=== PATIENT | female | born 1970 ===

== ENCOUNTER 2016-10-13 10:21 | Day surgery (SDC) | payer MEDICARE, OTHER ==
[2016-07-22 12:11] VITALS: BMI 32.3
[2016-10-13 11:30] VITALS: O2SAT 100
[2016-10-13] MEDS ORDERED: Midazolam 2 MG/2 ML VIAL ONE (11:47)
[2016-10-13] MEDS ORDERED: Absorbable Gelatin Sponge Size 12-7 ONE (12:00)
--- NOTE | 2016-10-13 12:23 | CP.SDSHP ---
Same Day Surgery H & P - History Proposed Procedure: US guided left kidney biopsy. Pre-Op Diagnosis: System LUpus, proteinuria - Allergies Allergies: Allergies No Known Allergies Allergy (Verified 07/02/16 14:08) - Physical Exam Vital Signs: Vital Signs 10/13/16 10:29 Temperature 97.6 F Pulse Rate 58 L Respiratory 20 Rate Blood Pressure 163/96 H O2 Sat by Pulse 100 Oximetry Mental Status: Alert & Oriented x3 Neuro: WNL Heart: WNL Lungs: WNL - Impression Impression: Pt with SLE and proteinuria referred for image guided renal biopsy. Plan US guided renal biopsy. Informed consent obtained. Pt. Evaluated Today:Candidate for Anesthesia & Procedure: Yes (ASA 3 Malampati 3) Short Stay Discharge - Short Stay Discharge Admitting Diagnosis/Reason for Visit: PROTEINURIA, UNSPECIFIED//CHRONIC KIDNEY DISEASE,S Disposition: HOME/ ROUTINE
--- NOTE | 2016-10-13 12:24 | PCM.SURG1 ---
Surgeon's Initial Post Op Note - Surgeon's Notes Surgeon: Du Colvin MD Percussion Tuner: NONE Type of Anesthesia: IV Sedation Pre-Operative Diagnosis: SLE, Proteinuria Operative Findings: Echogenic left kidney consistent with medical renal disease. Post-Operative Diagnosis: SLE, Proteinuria Operation Performed: US guided core biopsy of left kidney. Biopsy tract embolized with gelfoam. Specimen/Specimens Removed: 18 g core x 4 Estimated Blood Loss: EBL {In ML}: 0 Blood Products Given: N/A Drains Used: No Drains Post-Op Condition: Fair Date of Surgery/Procedure: 10/13/16 Time of Surgery/Procedure: 12:20
--- NOTE | 2016-10-13 15:19 | US ---
PROCEDURE: PROCEDURE: Date of procedure: 10/13/2016 Procedure: Ultrasound-guided left renal biopsy, CPT 50914 Ultrasound guidance for biopsy, [address] Medications: 6 cubic centimeters 2 percent lidocaine, patient received IV sedation by the anesthesiologist. HISTORY: Proteinuria TECHNIQUE: Following informed consent and procedure time-out, the patient was placed prone on the interventional table and a limited ultrasound showed slightly echogenic left kidney consistent with medical renal disease. There is no hydronephrosis or mass. The patient left back was prepped and draped in the usual sterile fashion. After patient sedated by the anesthesiologist and the skin anesthetized with lidocaine, an 18 gauge core needle was advanced percutaneously towards the lower pole cortex. Upon confirmation of needle position, three-18 gauge core specimens were obtained and sent for routine pathology. The biopsy tract was then embolized with Gelfoam. A post biopsy ultrasound showed no hematoma. There were no immediate complications. IMPRESSION: Ultrasound-guided left renal biopsy. HISTORY: TECHNIQUE: IMPRESSION:
[2016-10-13 15:46] VITALS: BP 140/90; PULSE 70; RESP 18; TEMP 98
== END 2016-10-13 15:48 | disposition home or self-care (01) ==
LOC: C.SPRAD 10:21
PROVIDERS: ATTEND Radiology Vascular & Interventional Radiology
DX: R80.9 Proteinuria, unspecified (principal); N18.4 Chronic kidney disease, stage 4 (severe); M32.9 Systemic lupus erythematosus, unspecified
CPT/HCPCS: 50200; 76942; 88305; J2250; J3010

== ENCOUNTER 2016-11-12 07:32 | Day surgery (SDC) | payer MEDICARE, OTHER ==
[2016-07-22 12:11] VITALS: BMI 32.3
[2016-11-12] MEDS ORDERED: ceFAZolin IV 1 gm in Dextrose 0 GM/0 ML BAG IVPB ONE (08:28)
[2016-11-12] MEDS ORDERED: Propofol 10 mg/ml Inj (20 ML) ONE (08:41)
[2016-11-12] MEDS ORDERED: Midazolam 2 MG/2 ML VIAL ONE (08:42)
[2016-11-12] MEDS ORDERED: Sodium Chloride 0.9% 500 ML IV ONE (08:45)
[2016-11-12] MEDS ORDERED: ceFAZolin IV 2 gm in Dextrose 1 GM/50 ML BAG IVPB ONE (08:58)
[2016-11-12] MEDS ORDERED: Neostigmine Methylsulfate 3mg/3ml Syringe IV ONE (09:39)
[2016-11-12] MEDS ORDERED: HYDROmorphone 0.5 mg/0.5 ml ISec IVP PRN (09:43)
[2016-11-12] MEDS ORDERED: HEPARIN-NS 5,000 UNITS/500 ML 0 UNIT/0 ML BAG IV ONE (10:24)
[2016-11-12] MEDS ORDERED: Sodium Chloride 0.9% 20 ML IV ONE (10:25)
--- NOTE | 2016-11-12 10:43 | PCM.SURG1 ---
Surgeon's Initial Post Op Note - Surgeon's Notes Surgeon: Dr. Brannon [employer] Subcontractor: Dr. Edwards PGY-2, Dr. Woodruff PGY-2 Type of Anesthesia: General Endo Pre-Operative Diagnosis: Renal failure requiring dialysis Operative Findings: Catheter in the right pelvis Post-Operative Diagnosis: Renal failure requiring dialysis Operation Performed: Laparoscopic insertion of peritoneal dialysis catheter ( Tenkoff) Specimen/Specimens Removed: none Estimated Blood Loss: EBL {In ML}: 10 Blood Products Given: N/A Drains Used: No Drains (Peritoneal dialysis catheter) Post-Op Condition: Good Date of Surgery/Procedure: 11/12/16 Time of Surgery/Procedure: 09:00
[2016-11-12 12:52] VITALS: BP 118/76; PULSE 61; RESP 15; TEMP 97; O2SAT 97
--- NOTE | 2016-11-13 07:13 | OP ---
PROCEDURE DATE: 11/12/2016 PREOPERATIVE DIAGNOSIS: Renal failure, planned peritoneal dialysis. PROCEDURE CARRIED OUT: Placement of Tenckhoff catheter, curlicue type, with 2 cuffs laparoscopically . SURGEON: Moy Brannon Jr., MD CAPTAIN ROOM SERVICE: Dr. Woodruff and Dr. Edwards. ANESTHESIA: General anesthesia, Marta Villasenor. INDICATIONS: The patient is a middle-aged woman with history of gastric bypass and gallbladder surge ry in the past, who requires peritoneal dialysis. OPERATIVE FINDINGS: 1. There was no evidence of a hernia. 2. There were no significant intraabdominal adhesions. DESCRIPTION OF PROCEDURE: The patient was given general anesthesia and intravenous antibiotics. The area had been mapped out on the abdominal wall. We made an incision in left upper quadrant and inse rted a Veress needle and then inserted a trocar in this location. Under direct vision then we ____ p laced a catheter in the right rectus sheath and tunneled it down into the pelvis. We then filled thi s with fluid to make sure that there was good inflow and outflow, and it was excellent. We then brou ght the tunnel through a subcutaneous portion and brought it out on the right upper abdomen. Blood l oss of procedure was approximately 10-25 mL. There were no significant intraabdominal complications or problems. I mention again that there was excellent flow in and out with the catheter. Catheter w as flushed with heparinized saline at the end. Dressing was secured to the skin. No sutures were pl aced. OPERATION CARRIED OUT: Laparoscopic placement of Tenckhoff peritoneal dialysis catheter. Moy Brannon Jr., MD cc: 56 TT: 11/12/2016 10:55:58 mt
== END 2016-11-12 12:48 | disposition home or self-care (01) ==
LOC: C.SDS 07:32
PROVIDERS: ATTEND Surgery Vascular Surgery
DX: N18.6 End stage renal disease (principal)
CPT/HCPCS: 36415; 49324; 84132; J0690; J2001; J2250; J2405; J2704; J2710; J3010; J7040

== ENCOUNTER 2018-10-22 19:44 | Emergency (ER) | payer MEDICARE, OTHER ==
[2018-10-22 19:45] VITALS: BMI 32.3
[2018-10-22 20:12] VITALS: BP 129/80; PULSE 84; RESP 18; TEMP 98.2; O2SAT 96
--- NOTE | 2018-10-22 20:37 | C.PDOC ---
History Of Present Illness 47 y/o female pt with hx of kidney transplant, lupus, sjogren's, arthritis and HTN presents to the ER c/o cough x1 week with associated clear phlegm, occasional SOB and chest congestion. Pt states that she has been taking robitussin and tea with minimal relief. Pt denies fever, chills, headache, sore throat, chest pain nausea, vomiting and diarrhea. Time Seen by Provider: 10/22/18 20:14 Chief Complaint (Nursing): Cough, Cold, Congestion History Per: Patient History/Exam Limitations: no limitations Onset/Duration Of Symptoms: Days (x7) Current Symptoms Are (Timing): Still Present Past Medical History Reviewed: Historical Data, Nursing Documentation, Vital Signs Vital Signs: Last Vital Signs Temp 98.2 F 10/22/18 20:08 Pulse 84 10/22/18 20:08 Resp 18 10/22/18 20:08 BP 129/80 10/22/18 20:08 Pulse Ox 96 10/22/18 20:08 - Medical History PMH: Gall Bladder Disease, HTN, Hypercholesterolemia, Chronic Kidney Disease (renal insufficiency) Surgical History: Cholecystectomy (2014), Endoscopy Family History: States: Unknown Family Hx - Social History Hx Tobacco Use: No Hx Alcohol Use: No Hx Substance Use: No - Immunization History Hx Tetanus Toxoid Vaccination: Yes Hx Influenza Vaccination: Yes (Feb 2016) Hx Pneumococcal Vaccination: No Review Of Systems Constitutional: Negative for: Fever, Chills ENT: Negative for: Throat Pain Cardiovascular: Positive for: Other (chest congestion ). Negative for: Chest Pain Respiratory: Positive for: Cough, Shortness of Breath, Sputum (clear) Gastrointestinal: Negative for: Nausea, Vomiting, Diarrhea Neurological: Negative for: Headache Physical Exam - Physical Exam Appears: Non-toxic, No Acute Distress Skin: Warm, Dry Head: Normacephalic Eye(s): bilateral: PERRL, EOMI Ear(s): Bilateral: Normal Nose: Normal Oral Mucosa: Moist Throat: Normal, No Erythema, No Exudate Chest: Symmetrical Cardiovascular: Rhythm Regular Respiratory: Normal Breath Sounds Neurological/Psych: Oriented x3, Normal Speech, Normal Cognition ED Course And Treatment O2 Sat by Pulse Oximetry: 96 (RA) Pulse Ox Interpretation: Normal - Other Rad chest xray X-Ray: Interpreted by Me Interpretation: marked interstitial lung markings Medical Decision Making Medical Decision Making: plans: -- cxr reviewed with Dr. Mendiola- unremarkable compared to prior imaging; -- pred given d/w patient results Continue Pred for 5 days as instructed Start Pecid as instructed Rest and Hydration Follow up with PMD in 1-2 days Disposition Counseled Patient/Family Regarding: Studies Performed, Diagnosis, Need For Followup, Rx Given - Disposition Referrals: Marin Pritchard MD [Primary Care Provider] - Disposition: HOME/ ROUTINE Disposition Time: 21:30 Condition: IMPROVED Additional Instructions: Continue Pred as instructed Start Pecid as instructed Rest and Hydration Follow up with PMD in 1-2 days Return to the ED if symptoms worsen Prescriptions: Famotidine [Pepcid] 20 mg PO DAILY #5 tab predniSONE [predniSONE Tab] 60 mg PO DAILY #15 tab Instructions: Viral Upper Respiratory Infection, Adult (DC) Forms: [employer] (Tunisian) - Clinical Impression Clinical Impression: Cough, Viral URI - PA / OFFICE ADMINISTRATOR / Resident Statement MD/ has reviewed & agrees with the documentation as recorded. - Scribe Statement The provider has reviewed the documentation as recorded by the Manuel Benites Do All medical record entries made by the Scribe were at my direction and personally dictated by me. I have reviewed the chart and agree that the record accurately reflects my personal performance of the history, physical exam, medical decision making, and the department course for this patient. I have also personally directed, reviewed, and agree with the discharge instructions and disposition. Addendum Addendum: 10/23/18 23:20 Patient was notified of the results and advised to follow up with PMD on scheduled appt on . Advised patien tot obtain copy of xray disc and report for review by PMD. [facility] ordered but asked patient to confirm with PMD if this med is acceptable due to history of Renal transplant. Patient recommended to have reapt xray after treatment. Patient verbalized understanding and is in agreement with plan. XRAY results below. Accession No. : [id number] Patient Name / ID : ARTUOR Espinosa / [id number] Exam Date : 10/22/2018 20:27:20 ( Approved ) Study Comment : Sex / Age : F / 47Y Creator : Dewayne Arreola MD Dictator : Dewayne Arreola MD [employer] : Brand Mgr : Dewayne Arreola MD Approver2 : Report Date : 10/23/2018 08:43:54 My Comment : Chest x-ray two views HISTORY: Cough. COMPARISON: 11/10/2016 FINDINGS: Diffuse increased interstitial lung markings. Patchy increased markings in the right hilar region, right lung base, and left lung base which may represent underlying infiltrate and or atelectasis. Clinical correlation. Post treatment interval follow-up may be helpful to ensure resolution. Bilateral hilar prominence. Mild cardiomegaly. Degenerative changes in the spine. Impression: Diffuse increased interstitial lung markings. Patchy increased markings in the right hilar region, right lung base, and left lung base which may represent underlying infiltrate and or atelectasis. Clinical correlation. Post treatment interval follow-up may be helpful to ensure resolution. Bilateral hilar prominence. Mild cardiomegaly.
[2018-10-22] MEDS ORDERED: Albuterol-Ipratrop 3 mg / 0.5 (3 ml) UD INH STA (21:03)
[2018-10-22] MEDS ORDERED: Albuterol-Ipratrop 3 mg / 0.5 (3 ml) UD ONE (21:14)
--- NOTE | 2018-10-23 08:47 | RAD ---
Chest x-ray two views HISTORY: Cough. COMPARISON: 11/10/2016 FINDINGS: Diffuse increased interstitial lung markings. Patchy increased markings in the right hilar region, right lung base, and left lung base which may represent underlying infiltrate and or atelectasis. Clinical correlation. Post treatment interval follow-up may be helpful to ensure resolution. Bilateral hilar prominence. Mild cardiomegaly. Degenerative changes in the spine. Impression: Diffuse increased interstitial lung markings. Patchy increased markings in the right hilar region, right lung base, and left lung base which may represent underlying infiltrate and or atelectasis. Clinical correlation. Post treatment interval follow-up may be helpful to ensure resolution. Bilateral hilar prominence. Mild cardiomegaly.
== END 2018-10-22 21:40 | disposition home or self-care (01) ==
LOC: SUPCPDRO 19:44 → C.ER 19:44
DX: J06.9 Acute upper respiratory infection, unspecified (principal); R05 Cough; E78.00 Pure hypercholesterolemia, unspecified; I12.9 Hypertensive chronic kidney disease with stage 1 through stage 4 chronic kidney disease, or unspecified chronic kidney disease; N18.9 Chronic kidney disease, unspecified; M32.9 Systemic lupus erythematosus, unspecified; Z94.0 Kidney transplant status; M35.00 Sjogren syndrome, unspecified